=== PATIENT | male | born 1945 | race Caucasian/White ===

== ENCOUNTER → 2017-10-19 | Outpatient (CLI) | payer OTHER ==
[~2017-10-19] MED LIST: ASPI81TA82 PO; BUME1TAB PO; GABA100C4 PO; LOPR50TA12 PO; LOSA25 PO; METF500 PO; PRIL40CA PO; ROFL1TAB2 PO; SIMV20 PO; TIOT18I INH; ZOFR4TAB3 SL
--- NOTE | 2017-10-22 11:01 | RSPPFT ---
DATE OF PROCEDURE: 10/19/17 COMMENTS: VOLUMES DYNAMIC: FVC normal; FEV1 mildly reduced. STATIC: TLC, FRC mildly reduced, RV normal. FLOWS: FEV1% mildly reduced; FEF 25-75 moderaely reduced. DIFFUSION: Moderately reduced. FLOW VOLUME LOOP: Pattern of variable intrathoracic airways obstruction. IMPRESSION: Combined mild obstructive and mild restrictive ventilatory defect with a moderate reduction in diffusion. Airways resistance is increased. There is minimal change post-bronchodilator.
== END ==
LOC: HRSP 12:30
PROVIDERS: ATTEND Internal Medicine
DX: J44.9 Chronic obstructive pulmonary disease, unspecified (principal)
CPT/HCPCS: 94060; 94618; 94726; 94729

== ENCOUNTER 2018-06-17 13:53 | Observation (INO) ==
[2018-06-17] MEDS ORDERED: MethylPREDNISolone Sod Succinate Inj 125 MG/2 ML Vial IV.PUSH ONE (17:28)
--- NOTE | 2018-06-17 17:37 | ED ---
HPI General Chief Complaint: Respiratory Symptoms Stated Complaint: Doctor Sent/SOB Complaint Time Seen by Provider: 06/17/18 17:16 Source: patient Mode of arrival: ambulatory Limitations: no limitations History of Present Illness HPI Narrative: 73-year-old male with PMH of HTN, COPD, neuropathy, PE, DM, VT, GERD, CKD presents the ED for evaluation of 2-week history of cough and SOB. Cough is occasionally productive of yellow mucus. He states that sometimes the coughing fits cause him to feel like he is going to "black out." He endorses intermittent wheezing. Patient endorses measuring a temperature of 100 by oral thermometer 3 days ago. He endorses lower extremity edema that he states is improved by elevation of the legs. He denies chest pain, palpitations, abdominal pain, nausea, vomiting, dysuria. He denies posttussive emesis. He has not received this years flu vaccine. He states that he saw his primary care provider, Dr. Braden, and was provided a course of azithromycin. He finished the medication with no improvement of symptoms. He is prescribed duo nebs twice daily and nightly O2. He has been intermittently compliant with these treatments. He does not take blood thinners. Related Data Home Medications Medication Instructions Recorded Confirmed Daliresp 06/17/18 aspirin [Aspirin Low Dose] 81 mg PO DAILY 06/17/18 06/17/18 atorvastatin 40 mg PO DAILY 06/17/18 06/17/18 furosemide 40 mg PO DAILY 06/17/18 06/17/18 pantoprazole 40 mg PO DAILY 06/17/18 06/17/18 potassium chloride 10 meq PO DAILY 06/17/18 06/17/18 pregabalin [Lyrica] 75 mg PO BID 06/17/18 06/17/18 tamsulosin 0.4 mg PO DAILY 06/17/18 06/17/18 topiramate 25 mg PO BID 06/17/18 06/17/18 umeclidinium [Incruse Ellipta] 1 inh INHALATION DAILY 06/17/18 06/17/18 Allergies Allergy/AdvReac Type Severity Reaction Status Date / Time penicillin G Allergy Unknown Anaphylaxis Verified 06/17/18 17:18 Review of Systems ROS: all other systems reviewed are negative [facility] Medical History Medical History Bladder cancer (Acute) COPD (chronic obstructive pulmonary disease) (Acute) Chronic kidney disease (Acute) Diabetes mellitus (Acute) GERD (gastroesophageal reflux disease) (Acute) Gastric ulcer (Acute) Heart attack (Acute) Hiatal hernia (Acute) Neuropathy (Acute) Osteoarthritis (Acute) Peripheral edema (Acute) Pulmonary embolism (Acute) Surgical History Surgical History History of cholecystectomy (Acute) History of fusion of cervical spine (Acute) History of heart artery stent (Acute) History of shoulder surgery (Acute) Family History Family History Other Coronary artery disease Diabetes mellitus Social History Social History Substance History: No History of Abuse Smoking Status: Former smoker How Often Do You Have a Drink Containing Alcohol: Monthly or less Recent Travel in [facility] within the Last 8 Weeks: No Recent Out of Country Travel within the Last 8 Weeks: No Immunization History Tetanus Immunization: <5 Years Tetanus Immunization Year if Known: 2016 Exam Narrative Exam Narrative: GENERAL: Well-nourished, well-developed, nontoxic-appearing, pleasant white male in no acute distress. SKIN: Focused skin assessment warm/dry. HEAD: Atraumatic. Normocephalic. EYES: Pupils equal and round. No scleral icterus. No injection or drainage. ENT: No nasal bleeding or discharge. Mucous membranes pink and moist. NECK: Trachea midline. No JVD. CARDIOVASCULAR: Regular rate and rhythm. No murmur appreciated. RESPIRATORY: No accessory muscle use. Clear to auscultation. Breath sounds equal bilaterally. GASTROINTESTINAL: Abdomen soft, non-tender, nondistended. Hepatic and splenic margins not palpable. MUSCULOSKELETAL: No obvious deformities. No clubbing. No cyanosis. 1+ pitting edema to the knees bilaterally. NEUROLOGICAL: Awake and alert. No obvious cranial nerve deficits. Motor grossly within normal limits. Normal speech. PSYCHIATRIC: Appropriate mood and affect; insight and judgment normal. Course Initial Documented Vital Signs Temperature 98.3 F 06/17/18 14:09 Pulse Rate 81 06/17/18 14:09 Respiratory Rate 20 06/17/18 14:09 Blood Pressure 143/85 H 06/17/18 14:09 Pulse Oximetry 94 L 06/17/18 14:09 Last Documented Vital Signs Temperature 98.3 F 06/17/18 14:09 Pulse Rate 71 06/17/18 20:46 Respiratory Rate 20 06/17/18 20:46 Blood Pressure 162/72 H 06/17/18 20:46 Pulse Oximetry 97 06/17/18 20:46 Medical Decision Making MDM Narrative Medical decision making narrative: 73-year-old male presents the ED for evaluation of 2-week history of cough, occasionally productive of yellow sputum. He endorses associated fever, 100 by oral thermometer at home 3 days ago. Patient has a history of COPD. He is intermittently compliant with his medications. Vitals reviewed. O2 sats ranging between 88 and 94 on 2 L by nasal cannula. Lung sounds clear and equal bilaterally. Trace edema in the bilateral lower extremities. Patient was administered duo nebs x2, IV steroids. Workup without evidence of pneumonia. Plan to admit for COPD exacerbation. Given the patient's history of PE will also rule out by CTA. I spoke with Dr. Mccarthy who agrees to accept the patient to the medicine service. Please see medicine notes for disposition. Medical Screen Exam Complete: Yes Emergency Medical Condition: Yes Differential Diagnosis Differential Diagnosis: COPD exacerbation versus pneumonia versus noncompliance versus PE versus other Lab Data Result diagrams: 06/17/18 17:36 06/17/18 17:36 Lab Results 06/17/18 06/17/18 06/17/18 Range/Units 17:36 17:36 17:36 WBC 6.3 (4.0-11.0) th/mm3 RBC 4.20 L (4.50-5.90) mil/mm3 Hgb 13.9 (13.0-17.0) gm/dL Hct 41.4 (39.0-51.0) % MCV 98.6 (80.0-100.0) fL MCH 33.1 (27.0-34.0) pg MCHC 33.6 (32.0-36.0) % RDW 15.2 (11.6-17.2) % Plt Count 187 (150-450) th/mm3 MPV 7.5 (7.0-11.0) fL Neut % (Auto) 56.7 (16.0-70.0) % Lymph % (Auto) 23.2 (9.0-44.0) % [place] % (Auto) 9.4 H (0.0-8.0) % Eos % (Auto) 8.8 H (0.0-4.0) % Baso % (Auto) 1.9 (0.0-2.0) % Neut # (Auto) 3.6 (1.8-7.7) th/mm3 Lymph # (Auto) 1.5 (1.0-4.8) th/mm3 [place] # (Auto) 0.6 (0.0-0.9) th/mm3 Eos # (Auto) 0.6 H (0.0-0.4) th/mm3 Baso # (Auto) 0.1 (0.0-0.2) th/mm3 WBC Differential . Differential Comment Auto diff final Sodium 145 (136-145) meq/L Potassium 4.2 (3.5-5.1) meq/L Chloride 111 H (98-107) meq/L Carbon Dioxide 24.4 (21.0-32.0) meq/L Anion Gap 10 (5-15) meq/L BUN 27 H (7-18) mg/dL Creatinine 1.76 H (0.60-1.30) mg/dL Estimated GFR 38 L (>89) mL/min POC Glucose (68-110) mg/dl Random Glucose 87 (74-106) mg/dL Calcium 9.2 (8.5-10.1) mg/dL Total Bilirubin 0.3 (0.2-1.0) mg/dL AST 21 (15-37) U/L ALT 33 (12-78) U/L Alkaline Phosphatase 93 (45-117) U/L Troponin I Less than 0.02 L (0.02-0.05) ng/mL B-Natriuretic Peptide 49 (0-100) pg/mL Total Protein 7.8 (6.4-8.2) g/dL Albumin 3.7 (3.4-5.0) g/dL Urine Color (Yellw/Straw) Urine Clarity (Clear) Urine pH (5.0-8.5) Ur Specific [place] (1.002-1.035) Urine Protein (Neg-Trace) mg/dL Urine Glucose (UA) (Negative) mg/dL Urine Ketones (Negative) mg/dL Urine Occult Blood (Negative) Urine Nitrate (Negative) Urine Bilirubin (Negative) Urine Urobilinogen (Less than 2) mg/dL Ur Leukocyte Esterase (Negative) Urine RBC (0-3) /hpf Urine WBC (0-5) /hpf Urine Mucus (Occasional) /lpf Micro UA Comment Ur Microscopic Review Urine Culture Comments 06/17/18 06/17/18 Range/Units 18:40 20:56 WBC (4.0-11.0) th/mm3 RBC (4.50-5.90) mil/mm3 Hgb (13.0-17.0) gm/dL Hct (39.0-51.0) % MCV (80.0-100.0) fL MCH (27.0-34.0) pg MCHC (32.0-36.0) % RDW (11.6-17.2) % Plt Count (150-450) th/mm3 MPV (7.0-11.0) fL Neut % (Auto) (16.0-70.0) % Lymph % (Auto) (9.0-44.0) % [place] % (Auto) (0.0-8.0) % Eos % (Auto) (0.0-4.0) % Baso % (Auto) (0.0-2.0) % Neut # (Auto) (1.8-7.7) th/mm3 Lymph # (Auto) (1.0-4.8) th/mm3 [place] # (Auto) (0.0-0.9) th/mm3 Eos # (Auto) (0.0-0.4) th/mm3 Baso # (Auto) (0.0-0.2) th/mm3 WBC Differential Differential Comment Sodium (136-145) meq/L Potassium (3.5-5.1) meq/L Chloride (98-107) meq/L Carbon Dioxide (21.0-32.0) meq/L Anion Gap (5-15) meq/L BUN (7-18) mg/dL Creatinine (0.60-1.30) mg/dL Estimated GFR (>89) mL/min POC Glucose 103 (68-110) mg/dl Random Glucose (74-106) mg/dL Calcium (8.5-10.1) mg/dL Total Bilirubin (0.2-1.0) mg/dL AST (15-37) U/L ALT (12-78) U/L Alkaline Phosphatase (45-117) U/L Troponin I (0.02-0.05) ng/mL B-Natriuretic Peptide (0-100) pg/mL Total Protein (6.4-8.2) g/dL Albumin (3.4-5.0) g/dL Urine Color Yellow (Yellw/Straw) Urine Clarity Hazy H (Clear) Urine pH 6.0 (5.0-8.5) Ur Specific [place] 1.018 (1.002-1.035) Urine Protein Negative (Neg-Trace) mg/dL Urine Glucose (UA) Negative (Negative) mg/dL Urine Ketones Negative (Negative) mg/dL Urine Occult Blood Negative (Negative) Urine Nitrate Negative (Negative) Urine Bilirubin Negative (Negative) Urine Urobilinogen Less than 2 (Less than 2) mg/dL Ur Leukocyte Esterase Negative (Negative) Urine RBC 1 (0-3) /hpf Urine WBC Less than 1 (0-5) /hpf Urine Mucus Few H (Occasional) /lpf Micro UA Comment Culture not ind Ur Microscopic Review Not Reportable Urine Culture Comments Culture not ind Imaging Data Radiologist's impression: Chest X-Ray 06/17/18 17:28 CONCLUSION: Mild basilar scarring and fibrotic changes similar to May. Cardiomegaly. No effusion. ECG Data Attestation: I personally reviewed and interpreted this ECG as follows: (Rate 63 , sinus rhythm. NC interval 160, QRS 157, QTc 455 ms. Right bundle branch block. No acute ST changes.) Discharge Plan Discharge Disposition Patient Disposition: 30 Still Patient Physicians Team ED Provider: Lenny Cantu ED Midlevel Provider: Milla Mojica Primary Care Provider: Eliezer Braden Attending Provider: Caterina Mccarthy Other Providers: TamikaaHumanjonathan Discharge Interventions Interventions: ED Discharge Assessment Last Done: 06/17/18 21:29 Vital Signs Last Done: 06/17/18 19:16 Status ED Status: Left Department Discharge Information Discharge Date/Time: 06/17/18 21:30
[2018-06-17 18:16] LABS: Baso # (Auto) 0.1 th/mm3 (0.0-0.2); Baso % (Auto) 1.9 % (0.0-2.0); Eos # (Auto) 0.6 th/mm3 (0.0-0.4); Eos % (Auto) 8.8 % (0.0-4.0); Hematocrit 41.4 % (39.0-51.0); Hemoglobin 13.9 gm/dL (13.0-17.0); Lymph # (Auto) 1.5 th/mm3 (1.0-4.8); Lymph % (Auto) 23.2 % (9.0-44.0); Mean Corpuscular HGB Conc 33.6 % (32.0-36.0); Mean Corpuscular Hemoglobin 33.1 pg (27.0-34.0); Mean Corpuscular Volume 98.6 fL (80.0-100.0); Mean Platelet Volume 7.5 fL (7.0-11.0); Mono # (Auto) 0.6 th/mm3 (0.0-0.9); Mono % (Auto) 9.4 % (0.0-8.0); Neut # (Auto) 3.6 th/mm3 (1.8-7.7); Neut % (Auto) 56.7 % (16.0-70.0); Platelet Count 187 th/mm3 (150-450); Red Cell Distribution Width 15.2 % (11.6-17.2); White Blood Count 6.3 th/mm3 (4.0-11.0)
[2018-06-17 18:31] LABS: Albumin 3.7 g/dL (3.4-5.0); Anion Gap 10 meq/L (5-15); Aspartate Aminotransferase 21 U/L (15-37); Blood Urea Nitrogen 27 mg/dL (7-18); Calcium 9.2 mg/dL (8.5-10.1); Carbon Dioxide 24.4 meq/L (21.0-32.0); Chloride 111 meq/L (98-107); Glomerular Filtration Rate 38 mL/min (>89); Glucose,Random 87 mg/dL (74-106); Potassium 4.2 meq/L (3.5-5.1); Sodium 145 meq/L (136-145)
[2018-06-17 18:32] LABS: Alanine Aminotransferase 33 U/L (12-78)
[2018-06-17 18:35] LABS: Alkaline Phosphatase 93 U/L (45-117); Total Protein 7.8 g/dL (6.4-8.2)
--- NOTE | 2018-06-17 18:55 | XR ---
EXAM DATE: 06/17/2018 5:28 PM EDT AGE/SEX: 73 years / Male INDICATIONS: Cough. Shortness of breath. CLINICAL DATA: This is the patient's initial encounter. Patient reports that signs and symptoms have been present for 1 week and indicates a pain score of 0/10. MEDICAL/SURGICAL HISTORY: Cerebrovascular disease. Chronic obstructive pulmonary disease. Form er smoker. . Cardiac stents. COMPARISON: POI, XR CHEST PA AND LAT, 01/14/2018. . FINDINGS: Mild basilar density, probably atelectasis. No effusion. No pneumothorax. Mild cardiomegaly. Previous fusion lower cervical spine. CONCLUSION: Mild basilar scarring and fibrotic changes similar to May. Cardiomegaly. No effusion. Electronically signed by: Cruz Kim MD 06/17/2018 6:54 PM EDT
[2018-06-17 19:00] LABS: Bilirubin,Urine Negative (Negative); Clarity,Urine Hazy (Clear); Color,Urine Yellow (Yellw/Straw); Glucose,Urine (UA) Negative (Negative); Leukocyte Esterase,Urine Negative (Negative); Mucus,Urine Few /lpf (Occasional); Nitrite,Urine Negative (Negative); Specific Gravity,Urine 1.018 (1.002-1.035)
[2018-06-17] MEDS ORDERED: Dextrose 50% in Water 50 ML Vial IV.PUSH PRN (19:55)
[2018-06-17] MEDS ORDERED: Bisacodyl 10 MG Supp RECTAL PRN (19:57)
[2018-06-17] MEDS ORDERED: Acetaminophen 325 MG Tablet PO PRN (19:57)
[2018-06-17] MEDS: Enoxaparin Inj 40 MG/0.4 ML Syringe SQ SCH (20:24)
--- NOTE | 2018-06-17 20:45 | P.HP ---
History of Present Illness Service: [facility] History of Present Illness: 73-year-old male with past medical history significant for previous PE, not currently on systemic anticoagulation, COPD, CAD status post PR, diet- controlled diabetes mellitus, hyperlipidemia, neuropathy and history of bladder cancer presents to the emergency department for evaluation of shortness of breath and cough. The patient reports that approximately 2 weeks ago he started having a cough productive of yellow sputum with accompanying fever. He had associated shortness of breath. He has been seen by his primary care physician twice and completed 2 Z-Paks. He was not given steroids. He is on 2 L of home oxygen at night as needed. He has a history of intubation last year. She denies any chest pain. No abdominal pain. No nausea/vomiting/diarrhea. No lateralizing signs/symptoms. Inpatient Certification: I certify that the inpatient services were ordered in accordance with Medicare regulations governing the order. This includes certification that hospital inpatient services are reasonable and necessary and in the case of services not specified as inpatient-only under 42 CFR 419.22(n), that they are appropriately provided as inpatient services in accordance to with the 2-midnight benchmark under 43 CFR 412.3(e) Review of Systems All other systems reviewed negative except as stated in HPI PMFSH - History History Provided By: Patient - Medical History Medical History: Medical History (Last Reviewed 06/17/18 @ 20:39 by Caterina Mccarthy MD) Bladder cancer COPD (chronic obstructive pulmonary disease) Chronic kidney disease Diabetes mellitus GERD (gastroesophageal reflux disease) Gastric ulcer Heart attack Hiatal hernia Neuropathy Osteoarthritis Peripheral edema Pulmonary embolism - Surgical History Surgical History: Surgical History (Last Updated 06/17/18 @ 20:40 by Caterina Mccarthy MD) History of cholecystectomy History of fusion of cervical spine History of heart artery stent History of shoulder surgery - Family History Family History: Family History (Last Updated 06/17/18 @ 20:40 by Caterina Mccarthy MD) Other Coronary artery disease Diabetes mellitus - Tobacco History Smoking Status: Former smoker - Alcohol History How Often Do You Have a Drink Containing Alcohol: Monthly or less - Substance Use History Substance History: No History of Abuse - Travel History Recent Travel in the [place] Within the Last 8 Weeks: No Recent Travel Out of the Country Within the Last 8 Weeks: No - Immunization History Tetanus Immunization: <5 Years Tetanus Immunization Year if Known: 2016 Medications and Allergies Active Medications: Active Medications Acetaminophen (Tylenol) 650 mg PO Q4H PRN PRN Reason: Temp > 100.4 Albuterol (Duoneb Neb (Prn)) 1 ampul NEB Q2HR NEB PRN PRN Reason: SHORTNESS OF BREATH/WHEEZING Aspirin (Ecotrin) 81 mg PO DAILY BETSY Atorvastatin Calcium (Lipitor) 40 mg PO DAILY BETSY Bisacodyl (Dulcolax Supp) 10 mg RECTAL DAILY PRN PRN Reason: SEVERE CONSITIPATION Dextrose (D50w Vial) 50 ml IV.PUSH UNSCH PRN PRN Reason: PER HYPOGLYCEMIA PROTOCOL Enoxaparin Sodium (Lovenox Inj) 40 mg SQ Q24H BETSY Last Admin: 06/17/18 20:24 Dose: 40 mg Furosemide (Lasix) 40 mg PO DAILY BETSY Glucagon (Glucagon Inj) 1 mg OTHER PRN PRN PRN Reason: for Hypoglycemia Protocol Levofloxacin/Dextrose (Levaquin 500 Mg Premix Inj) 500 mg in 100 mls @ 100 mls/ hr IV.SIG ONCE ONE Stop: 06/17/18 21:59 Levofloxacin/Dextrose (Levaquin 250 Mg Premix Inj) 250 mg in 50 mls @ 50 mls/ hr IV.SIG Q24H BETSY Insulin Aspart (Novolog Insulin Correctional Sugar Inj) 0 unit SQ ACHS BETSY; Protocol Methylprednisolone Sodium Succinate (Solumedrol Inj) 40 mg IV.PUSH Q6H BETSY Pantoprazole Sodium (Protonix) 40 mg PO DAILY BETSY Pt:Incruse Ellipta 0 each INH DAILY [facility] Potassium Chloride (Klor-Con 10) 10 meq PO DAILY BETSY Pregabalin (Lyrica) 75 mg PO BID BETSY Sennosides (Senokot) 17.2 mg PO Q12H PRN PRN Reason: Moderate Constipation Tamsulosin HCl (Flomax) 0.4 mg PO DAILY BETSY Topiramate (Topamax) 25 mg PO BID [facility] Allergies Allergy/AdvReac Type Severity Reaction Status Date / Time penicillin G Allergy Unknown Anaphylaxis Verified 06/17/18 17:18 Home Medications Medication Instructions Recorded Confirmed Type Daliresp 06/17/18 History aspirin [Aspirin Low Dose] 81 mg PO DAILY 06/17/18 06/17/18 History atorvastatin 40 mg PO DAILY 06/17/18 06/17/18 History furosemide 40 mg PO DAILY 06/17/18 06/17/18 History pantoprazole 40 mg PO DAILY 06/17/18 06/17/18 History potassium chloride 10 meq PO DAILY 06/17/18 06/17/18 History pregabalin [Lyrica] 75 mg PO BID 06/17/18 06/17/18 History tamsulosin 0.4 mg PO DAILY 06/17/18 06/17/18 History topiramate 25 mg PO BID 06/17/18 06/17/18 History umeclidinium [Incruse Ellipta] 1 inh INHALATION DAILY 06/17/18 06/17/18 History Exam Vital signs: Vital Signs 06/17/18 14:09 06/17/18 17:20 06/17/18 17:39 Temperature 98.3 F Pulse Rate 81 65 56 L Respiratory Rate 20 24 18 Blood Pressure 143/85 H 192/89 H Pulse Oximetry 94 L 97 06/17/18 17:47 06/17/18 18:44 06/17/18 19:16 Temperature Pulse Rate 61 66 Respiratory Rate 16 22 Blood Pressure 152/74 H 173/81 H Pulse Oximetry 96 95 96 Intake & Output 06/17/18 06/17/18 06/18/18 06:59 18:59 06:59 Weight 90.718 kg Narrative: Gen.: No acute distress Head: Normocephalic. Atraumatic. EENT: Pupils equal round and reactive to light. Nose without drainage. Airway intact. Throat without injection. Cardiovascular: Regular rate and rhythm. No murmurs, rubs or gallops. Respiratory: Poor air movement with wheezes and rhonchi. Abdomen: Soft, nontender, nondistended. No peritoneal signs. Musculoskeletal: No gross deformities. No edema. Skin: No obvious rashes or erythema. Neuro: Sensory and motor grossly intact. Cranial nerves II through XII grossly intact. Results - Labs CBC & Chem 7: 06/17/18 17:36 06/17/18 17:36 Labs: Laboratory Results - last 24 hr 06/17/18 06/17/18 06/17/18 17:36 17:36 17:36 WBC 6.3 RBC 4.20 L Hgb 13.9 Hct 41.4 MCV 98.6 MCH 33.1 MCHC 33.6 RDW 15.2 Plt Count 187 MPV 7.5 Neut % (Auto) 56.7 Lymph % (Auto) 23.2 [place] % (Auto) 9.4 H Eos % (Auto) 8.8 H Baso % (Auto) 1.9 Neut # (Auto) 3.6 Lymph # (Auto) 1.5 [place] # (Auto) 0.6 Eos # (Auto) 0.6 H Baso # (Auto) 0.1 WBC Differential . Differential Comment Auto diff final Sodium 145 Potassium 4.2 Chloride 111 H Carbon Dioxide 24.4 Anion Gap 10 BUN 27 H Creatinine 1.76 H Estimated GFR 38 L Random Glucose 87 Calcium 9.2 Total Bilirubin 0.3 AST 21 ALT 33 Alkaline Phosphatase 93 Troponin I Less than 0.02 L B-Natriuretic Peptide 49 Total Protein 7.8 Albumin 3.7 Urine Color Urine Clarity Urine pH Ur Specific [place] Urine Protein Urine Glucose (UA) Urine Ketones Urine Occult Blood Urine Nitrate Urine Bilirubin Urine Urobilinogen Ur Leukocyte Esterase Urine RBC Urine WBC Urine Mucus Micro UA Comment Ur Microscopic Review Urine Culture Comments 06/17/18 18:40 WBC RBC Hgb Hct MCV MCH MCHC RDW Plt Count MPV Neut % (Auto) Lymph % (Auto) [place] % (Auto) Eos % (Auto) Baso % (Auto) Neut # (Auto) Lymph # (Auto) [place] # (Auto) Eos # (Auto) Baso # (Auto) WBC Differential Differential Comment Sodium Potassium Chloride Carbon Dioxide Anion Gap BUN Creatinine Estimated GFR Random Glucose Calcium Total Bilirubin AST ALT Alkaline Phosphatase Troponin I B-Natriuretic Peptide Total Protein Albumin Urine Color Yellow Urine Clarity Hazy H Urine pH 6.0 Ur Specific [place] 1.018 Urine Protein Negative Urine Glucose (UA) Negative Urine Ketones Negative Urine Occult Blood Negative Urine Nitrate Negative Urine Bilirubin Negative Urine Urobilinogen Less than 2 Ur Leukocyte Esterase Negative Urine RBC 1 Urine WBC Less than 1 Urine Mucus Few H Micro UA Comment Culture not ind Ur Microscopic Review Not Reportable Urine Culture Comments Culture not ind - Imaging Impressions Chest X-Ray 06/17/18 17:28 CONCLUSION: Mild basilar scarring and fibrotic changes similar to May. Cardiomegaly. No effusion. Caprini VTE Risk Assessment Caprini VTE Risk Assessment: Moderate/High Risk (score >= 2) Caprini Risk Assessment Model: Point Value = 1 Point Value = 2 Point Value = 3 Point Value = 5 Age 41-60 Minor surgery BMI > 25 kg/m2 Swollen legs Varicose veins or History of unexplained or recurrent spontaneous Oral contraceptives or hormone replacement Sepsis (< 1 month) Serious lung disease, including pneumonia (< 1 month) Abnormal pulmonary function Acute myocardial infarction Congestive heart failure (< 1 month) History of inflammatory bowel disease Medical patient at bed rest Age 61-74 Arthroscopic surgery Major open surgery (> 45 min) Laparoscopic surgery (> 45 min) Malignancy Confined to bed (> 72 hours) Immobilizing plaster cast Central venous access Age >= 75 History of VTE Family history of VTE Factor V Leiden Prothrombin [id number] Lupus anticoagulant Anticardiolipin antibodies Elevated serum homocysteine Heparin-induced thrombocytopenia Other congenital or acquired thrombophilia Stroke (< 1 month) Elective arthroplasty Hip, pelvis, or leg fracture Acute spinal cord injury (< 1 month) Prophylaxis Regimen: Total Risk Factor Score Risk Level Prophylaxis Regimen 0-1 Low Early ambulation 2 Moderate Order ONE of the following: *Sequential Compression Device (SCD) *Heparin 5000 units SQ BID 3-4 Higher Order ONE of the following medications: *Heparin 5000 units SQ TID *Enoxaparin/Lovenox 40 mg SQ daily (WT < 150 kg, CrCl > 30 mL/min) *Enoxaparin/Lovenox 30 mg SQ daily (WT < 150 kg, CrCl > 10-29 mL/min) *Enoxaparin/Lovenox 30 mg SQ BID (WT < 150 kg, CrCl > 30 mL/min) AND/OR *Sequential Compression Device (SCD) 5 or more Highest Order ONE of the following medications: *Heparin 5000 units SQ TID (Preferred with Epidurals) *Enoxaparin/Lovenox 40 mg SQ daily (WT < 150 kg, CrCl > 30 mL/min) *Enoxaparin/Lovenox 30 mg SQ daily (WT < 150 kg, CrCl > 10-29 mL/min) *Enoxaparin/Lovenox 30 mg SQ BID (WT < 150 kg, CrCl > 30 mL/min) AND *Sequential Compression Device (SCD) Assessment and Plan - Plan Assessment/plan: 1. COPD exacerbation/shortness of breath Patient with clinical pneumonia, increased sputum production, cough and fever Levaquin Cannot exclude PE as patient with history of previous PE not currently on systemic anticoagulation CT pulmonary angiogram pending IV steroids Supplemental oxygen as needed Duo nebs 2. Hypertension/hyperlipidemia/coronary artery disease/neuropathy Continue home medications 3. Diet controlled diabetes mellitus Sliding scale insulin Monitor blood glucose 4. Chronic kidney disease Creatinine 1.76, baseline for the patient Monitor renal FEN Cardiac/diabetic diet Electrolytes: Urine replete as needed Lovenox
[2018-06-17] MEDS ORDERED: Levofloxacin 500 mg Premix Inj 500 MG/100 ML PIGGYBACK IV.SIG ONE (21:00)
--- NOTE | 2018-06-17 23:20 | CT ---
EXAM DATE: 06/17/2018 7:47 PM EDT AGE/SEX: 73 years / Male INDICATIONS: Shortness of breath. CLINICAL DATA: This is the patient's initial encounter. Patient reports that signs and symptoms have been present for 1 day and indicates a pain score of 5/10. MEDICAL/SURGICAL HISTORY: . Bladder cancer. Chronic kidney disease. Gastric ulcer. Heart attack. Hi atal hernia. Neuropathy. Pulmonary embolism. Cholecystectomy. Fusion of cervical spine. Heart artery stent. Shoulder. RADIATION DOSE: 23.36 CTDI (mGy) COMPARISON: POI, CT CHEST W/O CONTRAST, 11/25/2015. . TECHNIQUE: Volumetric scanning was performed using a multi-row detector CT scanner during bolus infu theodore of 50 ml Visipaque 320 (iodixanol) nonionic water-soluble contrast as a single exam dose. The d theresa was post processed with a variety of visualization algorithms including full volume maximum inten sity projection and sliding thin slab reformation. Using automated exposure control and adjustment o f the mA and/or kV according to patient size, radiation dose was kept as low as reasonably achievable to obtain optimal diagnostic quality images. DICOM format image data is available electronically fo r review and comparison. FINDINGS: Examination of the pulmonary vasculature demonstrates good filling of the main, lobar and segmental b ranches. There are no filling defects to suggest pulmonary embolism. Multiplanar reconstructions are also unremarkable. Examination of the mediastinum demonstrates no abnormally enlarged lymph nodes by CT criteria. No axi llary or hilar abnormalities are identified. Coronary artery calcifications are present. Emphysematou s changes are present in both upper lobes with by basilar atelectasis, edema or pneumonia. No pleural effusions are identified. CONCLUSION: No evidence of pulmonary embolism. By basilar edema versus pneumonia Electronically signed by: Ivan Quintero MD 06/17/2018 11:18 PM EDT
[2018-06-18] MEDS: Insulin NovoLOG Aspart Correctional Sugar Inj SQ SCH ×5 (00:11→22:36)
[2018-06-18] MEDS: Topiramate 25 MG Tablet PO SCH ×3 (00:32→20:50)
[2018-06-18] MEDS: MethylPREDNISolone Sod Succinate Inj 40 MG/ML Vial IV.PUSH SCH ×5 (00:33→23:57)
[2018-06-18] MEDS: Pregabalin 75 MG Capsule PO SCH ×3 (00:33→20:51)
[2018-06-18] MEDS ORDERED: UMECLIDINIUM INHALATION SCH (09:00)
[2018-06-18] MEDS ORDERED: PT:INCRUSE ELLIPTA INH SCH (09:00)
[2018-06-18 09:28] LABS: Baso % (Auto) 0.2 % (0.0-2.0); Hematocrit 42.2 % (39.0-51.0); Hemoglobin 14.3 gm/dL (13.0-17.0); Lymph # (Auto) 0.9 th/mm3 (1.0-4.8); Mean Corpuscular HGB Conc 33.9 % (32.0-36.0); Mean Corpuscular Hemoglobin 32.9 pg (27.0-34.0); Mean Corpuscular Volume 97.1 fL (80.0-100.0); Mean Platelet Volume 7.5 fL (7.0-11.0); Mono # (Auto) 0.1 th/mm3 (0.0-0.9); Mono % (Auto) 1.1 % (0.0-8.0); Neut # (Auto) 7.9 th/mm3 (1.8-7.7); Neut % (Auto) 88.7 % (16.0-70.0); Platelet Count 174 th/mm3 (150-450); Red Blood Count 4.35 mil/mm3 (4.50-5.90); Red Cell Distribution Width 15.2 % (11.6-17.2)
[2018-06-18] MEDS: Furosemide 40 MG Tablet PO SCH (09:28)
[2018-06-18 09:49] LABS: Calcium 9.4 mg/dL (8.5-10.1); Carbon Dioxide 21.2 meq/L (21.0-32.0); Potassium 4.3 meq/L (3.5-5.1)
--- NOTE | 2018-06-18 10:31 | P.PN ---
Subjective Interval history: Follow-up for COPD exacerbation. Patient reports feeling slightly better today , however still short of breath with productive cough. He believes his wheezing has improved. He has not yet attempted ambulation. Denies any fevers or chills. Denies any chest pain. He does not feel ready for discharge. At home, he does have a nebulizer with DuoNeb solution. He also has oxygen that he uses as needed. He follows with records associate Dr. Rodriguez. He has had trouble obtaining a long-acting inhaled corticosteroid due to the cost, and has been intermittently using free samples from the office. Physical Exam Vital signs: Vital Signs 06/17/18 14:09 06/17/18 17:20 06/17/18 17:39 Temperature 98.3 F Pulse Rate 81 65 56 L Respiratory Rate 20 24 18 Blood Pressure 143/85 H 192/89 H Pulse Oximetry 94 L 97 06/17/18 17:47 06/17/18 18:44 06/17/18 19:16 Temperature Pulse Rate 61 66 Respiratory Rate 16 22 Blood Pressure 152/74 H 173/81 H Pulse Oximetry 96 95 96 06/17/18 20:46 06/18/18 00:00 06/18/18 04:00 Temperature 98.0 F 98.3 F Pulse Rate 71 74 80 Respiratory Rate 20 16 16 Blood Pressure 162/72 H 124/69 145/75 H Pulse Oximetry 97 94 L 93 L 06/18/18 08:00 06/18/18 08:42 Temperature 97.4 F L Pulse Rate 67 74 Respiratory Rate 18 16 Blood Pressure 156/83 H Pulse Oximetry 93 L 98 Intake & Output 06/17/18 06/18/18 06/18/18 18:59 06:59 18:59 Intake Total 100 / 100 Balance 100 / 100 Weight 90.718 kg Intake: IV 100 / 100 Levaquin 500 mg Premix Inj 500 100 / 100 mg In 100 ml @ 100 mls/hr IV. SIG ONCE ONE Rx#:[id number] Other: Date of Last Bowel Movement 06/17/18 Narrative: GENERAL: Well-nourished, well-developed pleasant elderly male patient in [facility]. SKIN: Warm and dry. No rash. HEENT: Normocephalic. Atraumatic. Pupils equal and round. Mucous membranes pink and moist. CARDIOVASCULAR: Regular rate and rhythm. No murmur appreciated. RESPIRATORY: No accessory muscle use. Poor air movement at bilateral bases with occasional expiratory wheeze, improving. Breath sounds equal bilaterally. GASTROINTESTINAL: Abdomen soft, non-tender, nondistended. Normoactive bowel sounds x4. MUSCULOSKELETAL: No obvious deformities. Extremities without clubbing, cyanosis , or edema. NEUROLOGICAL: Awake and alert. No obvious cranial nerve deficits. Motor grossly within normal limits. Moving all extremities spontaneously. Normal speech. PSYCHIATRIC: Appropriate mood and affect; insight and judgment normal. Results - Labs CBC & Chem 7: 06/18/18 09:08 06/18/18 09:08 Laboratory Results - last 24 hr 06/17/18 06/17/18 06/17/18 17:36 17:36 17:36 WBC 6.3 RBC 4.20 L Hgb 13.9 Hct 41.4 MCV 98.6 MCH 33.1 MCHC 33.6 RDW 15.2 Plt Count 187 MPV 7.5 Neut % (Auto) 56.7 Lymph % (Auto) 23.2 [place] % (Auto) 9.4 H Eos % (Auto) 8.8 H Baso % (Auto) 1.9 Neut # (Auto) 3.6 Lymph # (Auto) 1.5 [place] # (Auto) 0.6 Eos # (Auto) 0.6 H Baso # (Auto) 0.1 WBC Differential . Differential Comment Auto diff final Sodium 145 Potassium 4.2 Chloride 111 H Carbon Dioxide 24.4 Anion Gap 10 BUN 27 H Creatinine 1.76 H Estimated GFR 38 L POC Glucose Random Glucose 87 Calcium 9.2 Total Bilirubin 0.3 AST 21 ALT 33 Alkaline Phosphatase 93 Troponin I Less than 0.02 L B-Natriuretic Peptide 49 Total Protein 7.8 Albumin 3.7 Urine Color Urine Clarity Urine pH Ur Specific [place] Urine Protein Urine Glucose (UA) Urine Ketones Urine Occult Blood Urine Nitrate Urine Bilirubin Urine Urobilinogen Ur Leukocyte Esterase Urine RBC Urine WBC Urine Mucus Micro UA Comment Ur Microscopic Review Urine Culture Comments 06/17/18 06/17/18 06/18/18 18:40 20:56 09:08 WBC 9.0 RBC 4.35 L Hgb 14.3 Hct 42.2 MCV 97.1 MCH 32.9 MCHC 33.9 RDW 15.2 Plt Count 174 MPV 7.5 Neut % (Auto) 88.7 H Lymph % (Auto) 10.0 [place] % (Auto) 1.1 Eos % (Auto) 0.0 Baso % (Auto) 0.2 Neut # (Auto) 7.9 H Lymph # (Auto) 0.9 L [place] # (Auto) 0.1 Eos # (Auto) 0.0 Baso # (Auto) 0.0 WBC Differential . Differential Comment Auto diff final Sodium Potassium Chloride Carbon Dioxide Anion Gap BUN Creatinine Estimated GFR POC Glucose 103 Random Glucose Calcium Total Bilirubin AST ALT Alkaline Phosphatase Troponin I B-Natriuretic Peptide Total Protein Albumin Urine Color Yellow Urine Clarity Hazy H Urine pH 6.0 Ur Specific [place] 1.018 Urine Protein Negative Urine Glucose (UA) Negative Urine Ketones Negative Urine Occult Blood Negative Urine Nitrate Negative Urine Bilirubin Negative Urine Urobilinogen Less than 2 Ur Leukocyte Esterase Negative Urine RBC 1 Urine WBC Less than 1 Urine Mucus Few H Micro UA Comment Culture not ind Ur Microscopic Review Not Reportable Urine Culture Comments Culture not ind 06/18/18 06/18/18 09:08 09:09 WBC RBC Hgb Hct MCV MCH MCHC RDW Plt Count MPV Neut % (Auto) Lymph % (Auto) [place] % (Auto) Eos % (Auto) Baso % (Auto) Neut # (Auto) Lymph # (Auto) [place] # (Auto) Eos # (Auto) Baso # (Auto) WBC Differential Differential Comment Sodium 142 Potassium 4.3 Chloride 109 H Carbon Dioxide 21.2 Anion Gap 12 BUN 27 H Creatinine 1.71 H Estimated GFR 39 L POC Glucose 129 H Random Glucose 135 H Calcium 9.4 Total Bilirubin AST ALT Alkaline Phosphatase Troponin I B-Natriuretic Peptide Total Protein Albumin Urine Color Urine Clarity Urine pH Ur Specific [place] Urine Protein Urine Glucose (UA) Urine Ketones Urine Occult Blood Urine Nitrate Urine Bilirubin Urine Urobilinogen Ur Leukocyte Esterase Urine RBC Urine WBC Urine Mucus Micro UA Comment Ur Microscopic Review Urine Culture Comments Microbiology 06/17/18 17:43 Nasal Wash Influenza Types A,B Antigen - Final Negative for FLU A and B antigen Infection due to influenza A or B cannot be ruled out since the antigen present in the sample may be below the detection limit of the test. - Imaging Impressions Chest X-Ray 06/17/18 17:28 CONCLUSION: Mild basilar scarring and fibrotic changes similar to May. Cardiomegaly. No effusion. Chest CTA 06/17/18 19:43 CONCLUSION: No evidence of pulmonary embolism. By basilar edema versus pneumonia Assessment and Plan - Plan 73-year-old male with past medical history significant for previous PE, not currently on systemic anticoagulation, COPD, CAD status post [place], diet- controlled diabetes mellitus, hyperlipidemia, neuropathy and history of bladder cancer presents to the emergency department for evaluation of shortness of breath and cough. Acute COPD exacerbation with chronic respiratory failure: presented with SOB/ cough/wheezing/rhonchi. -CXR reviewed, shows Mild basilar scarring and fibrotic changes similar to May. Cardiomegaly. No effusion. -CT-PA reviewed, no PE, shows bibasilar edema vs pneumonia -Continue steroids with IV Solumedrol 40mg q6h -Continue bronchodilators with duonebs q6h jodi and q2h prn -Start on Symbicort bid -O2 as needed to keep O2 sat > 92% -Continue on antibiotics as below for pneumonia -Incentive spirometer Community Acquired Pneumonia: has failed outpatient treatment with 2 courses of Azithromycin -CT-PA with evidence of bibasilar edema vs pneumonia -patient with clinical pneumonia, purulent yellow sputum, cough, fevers -Continue on renally dosed IV Levaquin -Mucinex bid -Acapella qid Hypertension/hyperlipidemia/coronary artery disease/neuropathy: chronic, stable -Continue home meds including aspirin, statin, lasix, lyrica -Monitor BP, adjust antihypertensives as needed Diet controlled diabetes mellitus: chronic however expect higher blood sugars while on steroids -Monitor Accu-Checks and cover with SSI Chronic kidney disease, stage III: Creatinine 1.76, baseline for the patient -Avoid nephrotoxins -renally dose antibiotics -outpatient f/up DVT Prophylaxis: Lovenox sq Discharge Planning: Discharge pending further clinical improvement. Likely discharge 06/19.
[2018-06-18] MEDS: guaiFENesin 600 MG ER Tablet PO SCH ×2 (14:12→20:51)
[2018-06-18] MEDS: Budesonide-Formoterol 160/4.5 MCG 6 GM Inhaler INH SCH ×2 (16:20→20:50)
--- NOTE | 2018-06-18 19:53 | ECG ---
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
[2018-06-18] MEDS: Enoxaparin Inj 40 MG/0.4 ML Syringe SQ SCH (20:52)
[2018-06-18] MEDS ORDERED: Levofloxacin 250 mg Premix Inj 250 MG/50 ML PIGGYBACK IV.SIG SCH (21:00)
[2018-06-18 23:44] VITALS: TEMP 97.4
[2018-06-19] MEDS: MethylPREDNISolone Sod Succinate Inj 40 MG/ML Vial IV.PUSH SCH (06:31)
[2018-06-19 08:11] VITALS: BP 123/96; PULSE 87; RESP 20; O2SAT 98
[2018-06-19] MEDS: Insulin NovoLOG Aspart Correctional Sugar Inj SQ SCH (08:22)
[2018-06-19] MEDS ORDERED: Sodium Chloride 0.9% 2 ML Flush PRN IV.FLUSH (09:18)
--- NOTE | 2018-06-19 09:28 | P.PN ---
Subjective Interval history: Follow-up for COPD exacerbation, pneumonia. The patient reports feeling better today, although did have a rough day yesterday. He still reports some shortness of breath, worse with exertion. He states he does have an occasional wheeze, however overall improved. He reports of mostly nonproductive cough, also improving. Denies fevers or chills. Denies any chest pain. He wants to attempt ambulation prior to discharge today. He has no other medical complaints at this time. Physical Exam Vital signs: Vital Signs 06/18/18 12:00 06/18/18 12:11 06/18/18 16:00 Temperature 97.4 F L 97.5 F L Pulse Rate 94 H 96 H 84 Respiratory Rate 18 22 18 Blood Pressure 102/56 L 99/58 L Pulse Oximetry 94 L 94 L 06/18/18 19:58 06/18/18 20:00 06/18/18 23:43 Temperature 97.8 F 97.4 F L Pulse Rate 84 93 H 79 Respiratory Rate 16 17 17 Blood Pressure 130/65 112/57 L Pulse Oximetry 96 93 L 96 06/19/18 03:51 06/19/18 04:45 06/19/18 07:00 Temperature Pulse Rate 86 73 92 H Respiratory Rate 16 16 Blood Pressure 134/69 Pulse Oximetry 98 06/19/18 07:58 06/19/18 07:59 06/19/18 08:00 Temperature Pulse Rate 57 L Respiratory Rate 17 Blood Pressure Pulse Oximetry 93 L 06/19/18 08:09 Temperature 97.4 F L Pulse Rate 87 Respiratory Rate 20 Blood Pressure 123/96 H Pulse Oximetry 98 Intake & Output 06/18/18 06/19/18 06/19/18 18:59 06:59 18:59 Intake Total 200 / 200 50 / 50 Balance 200 / 200 50 / 50 Intake: IV 50 / 50 Levaquin 250 mg Premix Inj 250 50 / 50 mg In 50 ml @ 50 mls/hr IV.SIG Q24H [facility] Rx#:[id number] Oral 200 / 200 Other: # Voids 3 Date of Last Bowel Movement 06/17/18 Narrative: GENERAL: Well-nourished, well-developed pleasant elderly male patient in [facility]. SKIN: Warm and dry. No rash. HEENT: Normocephalic. Atraumatic. Pupils equal and round. Mucous membranes pink and moist. CARDIOVASCULAR: Regular rate and rhythm. No murmur appreciated. RESPIRATORY: No accessory muscle use. Improved air movement today with minimal end expiratory wheeze, much improved. Breath sounds equal bilaterally. GASTROINTESTINAL: Abdomen soft, non-tender, nondistended. Normoactive bowel sounds x4. MUSCULOSKELETAL: No obvious deformities. Extremities without clubbing, cyanosis , or edema. NEUROLOGICAL: Awake and alert. No obvious cranial nerve deficits. Motor grossly within normal limits. Moving all extremities spontaneously. Normal speech. PSYCHIATRIC: Appropriate mood and affect; insight and judgment normal. Results - Labs CBC & Chem 7: 06/18/18 09:08 06/18/18 09:08 Laboratory Results - last 24 hr 06/18/18 06/18/18 06/18/18 09:08 09:08 13:40 WBC 9.0 RBC 4.35 L Hgb 14.3 Hct 42.2 MCV 97.1 MCH 32.9 MCHC 33.9 RDW 15.2 Plt Count 174 MPV 7.5 Neut % (Auto) 88.7 H Lymph % (Auto) 10.0 [place] % (Auto) 1.1 Eos % (Auto) 0.0 Baso % (Auto) 0.2 Neut # (Auto) 7.9 H Lymph # (Auto) 0.9 L [place] # (Auto) 0.1 Eos # (Auto) 0.0 Baso # (Auto) 0.0 WBC Differential . Differential Comment Auto diff final Sodium 142 Potassium 4.3 Chloride 109 H Carbon Dioxide 21.2 Anion Gap 12 BUN 27 H Creatinine 1.71 H Estimated GFR 39 L POC Glucose 168 H Random Glucose 135 H Calcium 9.4 06/18/18 06/18/18 06/19/18 18:39 22:13 08:20 WBC RBC Hgb Hct MCV MCH MCHC RDW Plt Count MPV Neut % (Auto) Lymph % (Auto) [place] % (Auto) Eos % (Auto) Baso % (Auto) Neut # (Auto) Lymph # (Auto) [place] # (Auto) Eos # (Auto) Baso # (Auto) WBC Differential Differential Comment Sodium Potassium Chloride Carbon Dioxide Anion Gap BUN Creatinine Estimated GFR POC Glucose 124 H 170 H 135 H Random Glucose Calcium - Imaging Chest X-Ray 06/17/18 17:28 CONCLUSION: Mild basilar scarring and fibrotic changes similar to May. Cardiomegaly. No effusion. Chest CTA 06/17/18 19:43 CONCLUSION: No evidence of pulmonary embolism. By basilar edema versus pneumonia Assessment and Plan - Plan 73-year-old male with past medical history significant for previous PE, not currently on systemic anticoagulation, COPD, CAD status post [place], diet- controlled diabetes mellitus, hyperlipidemia, neuropathy and history of bladder cancer presents to the emergency department for evaluation of shortness of breath and cough. Acute COPD exacerbation with chronic respiratory failure: presented with SOB/ cough/wheezing/rhonchi. -CXR reviewed, shows Mild basilar scarring and fibrotic changes similar to May. Cardiomegaly. No effusion. -CT-PA reviewed, no PE, shows bibasilar edema vs pneumonia -Continue steroids with IV Solumedrol 40mg q6h -Continue bronchodilators with duonebs q6h jodi and q2h prn -Start on Symbicort bid -O2 as needed to keep O2 sat > 92% -Continue on antibiotics as below for pneumonia -Incentive spirometer -Improving, will attempt ambulation today prior to discharge Community Acquired Pneumonia: has failed outpatient treatment with 2 courses of Azithromycin -CT-PA with evidence of bibasilar edema vs pneumonia -patient with clinical pneumonia, purulent yellow sputum, cough, fevers -Continue on renally dosed IV Levaquin 750mg q48h -Mucinex bid -Acapella qid Hypertension/hyperlipidemia/coronary artery disease/neuropathy: chronic, stable -Continue home meds including aspirin, statin, lasix, lyrica -Monitor BP, adjust antihypertensives as needed Diet controlled diabetes mellitus: chronic however expect higher blood sugars while on steroids -Monitor Accu-Checks and cover with SSI Chronic kidney disease, stage III: Creatinine 1.76, baseline for the patient -Avoid nephrotoxins -renally dose antibiotics -outpatient f/up DVT Prophylaxis: Lovenox sq Discharge Planning: Await PT eval. Possible discharge today if patient able to ambulate without significant SOB. Discussed with RN. Discharge patient to home Condition on discharge: Stable Diabetic Diet as tolerated Ad Esme activity Rx written: Prednisone taper, Levaquin, duonebs, Symbicort, Mucinex Follow-up with primary care physician and pulmonology
[2018-06-19] MEDS: Topiramate 25 MG Tablet PO SCH (09:29)
[2018-06-19] MEDS: guaiFENesin 600 MG ER Tablet PO SCH (09:29)
[2018-06-19] MEDS: Pregabalin 75 MG Capsule PO SCH (09:30)
[2018-06-19] MEDS: Furosemide 40 MG Tablet PO SCH (09:30)
[2018-06-19] MEDS: Budesonide-Formoterol 160/4.5 MCG 6 GM Inhaler INH SCH (09:30)
[2018-06-19] MEDS ORDERED: Sodium Chloride 0.9% 2 ML Flush BID IV.FLUSH SCH (21:00)
== END 2018-06-19 12:03 | disposition home or self-care (01) ==
LOC: NEPE 13:53 → NEDA 13:53 → NEPHCDU 21:30
PROVIDERS: ADMIT Hospitalist; ATTEND Hospitalist